=== PATIENT | male | born 1955 | race Two or more races ===

== ENCOUNTER 2020-06-19 22:12 | Emergency (ER) | payer OTHER ==
[~2020-06-19] VITALS: Ht 162.6 cm; Wt 61.2 kg
[2020-06-19] MEDS ORDERED: HYDROCODONE/APAP 5/325MG TABLET ONE (22:29)
[2020-06-19] MEDS ORDERED: BACI/NEOM/POLY B OINT PKT 1 UDPKT PACKET TP ONE (22:30)
[2020-06-19] MEDS ORDERED: HYDROCODONE/APAP 5/325MG TABLET PO ONE (22:30)
--- NOTE | 2020-06-19 22:34 | NUR ---
KONRAD TO ER BED 12. AAOX4. NOT IN RESP DISTRESS. AMBULATORY. BROUGHT IN FOR BILAT LEG PAIN X 2 MONTH WORST TODAY. PT ALSO NOTED WITH L KNEE ABRASSION, HE REPORTS HE FELL ON IT. WAS AT THE BEDSIDE FOR EVAL. ORDERS RECEIVED, NOTED AND CARRIED OUT.
[2020-06-19] MEDS ORDERED: HYDR-4209 PO (22:42)
--- NOTE | 2020-06-19 23:33 | NUR ---
US AT BEDSIDE
--- NOTE | 2020-06-20 00:04 | NUR ---
Patient discharged to home in stable condition. Written and verbal after care instructions given. Patient verbalizes understanding of instruction. Pt ambulated out of ED. VSS.
[2020-06-20 00:05] VITALS: BP 142/89
== END 2020-06-20 00:12 | disposition home or self-care (01) ==
LOC: ER 22:15
DX: S80.212A Abrasion, left knee, initial encounter (principal); S20.212A Contusion of left front wall of thorax, initial encounter; G89.29 Other chronic pain; M79.604 Pain in right leg; M79.605 Pain in left leg; E11.9 Type 2 diabetes mellitus without complications; Z59.0 Homelessness; Z88.0 Allergy status to penicillin; Z79.899 Other long term (current) drug therapy; X58.XXXA Exposure to other specified factors, initial encounter; Y93.89 Activity, other specified; Y92.89 Other specified places as the place of occurrence of the external cause; Y99.8 Other external cause status
CPT/HCPCS: 71100-TC; 72170-TC; 73552; 93970-TC